=== PATIENT | female | born 1945 | race Caucasian/White ===

== ENCOUNTER 2017-05-25 20:18 | Emergency (ER) | payer OTHER ==
[2017-05-25 20:42] VITALS: TEMP 98.9; BMI 25.0
[2017-05-25] MEDS ORDERED: HYDROCHLOROTHIAZIDE 25 MG TABLET (FP) PO ONE (22:03)
[2017-05-25] MEDS ORDERED: ACETAMINOPHEN 500 MG TABLET (FP) PO ONE (22:03)
[2017-05-25] MEDS ORDERED: cloNIDine HCL 0.1 MG TABLET PO ONE (22:04)
--- NOTE | 2017-05-25 22:28 | PDOC ---
History of Present Illness - History of Present Illness Initial Comments: 05/25/17 22:29 The patient is a 72 year old female, with a significant past medical history of hypertension, who presents to the emergency department with headache since 12 noon. Patient says that she doesnt normally get headaches so she was concerned when a frontal headache developed this afternoon. She took her blood pressure and it was 170/104 which she claims is the highest it has been. Patient says she takes normally tales Losartan 25mg and took one today at 7:15 pm. She says she started taking Amoxicillin for an infection she has under her crown and is supposed to take it 3 times a day and has taken 2 so far today. She denies recent fevers, chills, or dizziness. She denies recent nausea, vomit , or visual changes. She denies recent chest pain or shortness of breath. Allergies: NKA Past surgical history: Appendectomy (2yrs ago) Social history: Nonsmoker. Denies EtOH use and recreational drug use. Primary Care Physician: Dr. Dobbs ([facility]) <Chantell Parks - Last Filed: 05/25/17 23:15> <Marleen Bautista - Last Filed: 05/25/17 23:32> - General Chief Complaint: Blood Pressure Problem Stated Complaint: BLOOD PRESSURE PROBLEM Time Seen by Provider: 05/25/17 21:02 Past History <Chantell Parks - Last Filed: 05/25/17 23:15> - Past Medical History HTN: Yes - Surgical History Appendectomy: Yes Orthopedic Surgery: (RIGHT SHOULDER SX 2012) - Suicide/Smoking/Psychosocial Hx Smoking Status: No Smoking History: Never smoked Years of Tobacco Use: 0 Have you smoked in the past 12 months: No Number of Cigarettes Smoked Daily: 0 Cigars Per Day: 0 Information on smoking cessation initiated: No Hx Alcohol Use: No Drug/Substance Use Hx: No <Marleen Bautista - Last Filed: 05/25/17 23:32> - Past Medical History Allergies/Adverse Reactions: Allergies Allergy/AdvReac Type Severity Reaction Status Date / Time codeine AdvReac Severe Vomiting Verified 05/25/17 20:42 Home Medications: Ambulatory Orders Losartan Potassium 25 mg PO DAILY 12/15/11 Amoxicillin - [Amoxicillin 500mg Capsule -] 500 mg PO DAILY 05/25/17 Review of Systems - Review of Systems Comments:: 05/25/17 22:29 CONSTITUTIONAL: Absent: fever, no chills, no fatigue EYES: Absent: visual changes ENT: Absent: ear pain, no sore throat CARDIOVASCULAR: Absent: chest pain, no palpitations RESPIRATORY: Absent: cough, no SOB GI: Absent: abdominal pain, no nausea, no vomiting, no constipation, no diarrhea GENITOURINARY: Absent: dysuria, no frequency, no hematuria MUSCULOSKELETAL: Absent: back pain, no arthralgia, no myalgia SKIN: Absent: rash NEURO: Present:: headache <Chantell Parks - Last Filed: 05/25/17 23:15> *Physical Exam - Vital Signs Last Vital Signs Temp Pulse Resp BP Pulse Ox 98.9 F 70 18 161/105 100 05/25/17 20:38 05/25/17 20:38 05/25/17 20:38 05/25/17 20:38 05/25/17 20:38 - Physical Exam Comments: 05/25/17 22:29 GENERAL: Alert and oriented x3. Well-appearing, well-nourished. No apparent distress. HEENT: Normocephalic, atraumatic. PERRL, EOM intact. CARDIOVASCULAR: Normal S1, S2. Regular rate and rhythm. PULMONARY: Clear to auscultation bilaterally. ABDOMEN: Soft, non-distended, non-tender. EXTREMITIES: Normal ROM in all four extremities. No gross deformities. SKIN: Warm, dry. No rash NEUROLOGICAL: No focal neurological deficits. <Chantell Parks - Last Filed: 05/25/17 23:15> - Vital Signs Last Vital Signs Temp Pulse Resp BP Pulse Ox 98.9 F 70 18 161/105 100 05/25/17 20:38 05/25/17 20:38 05/25/17 20:38 05/25/17 20:38 05/25/17 20:38 <Marleen Bautista - Last Filed: 05/25/17 23:32> ED Treatment Course - RADIOLOGY Radiograph Interpretation: 05/25/17 23:16 CT head w/out contrast Impression: No CT evidence of acute intracranial pathology. There has been no definite interval change comparison to a prior CT study of Reported by: Nir Zaragoza MD <Chantell Parks - Last Filed: 05/25/17 23:15> - RADIOLOGY Radiology Studies Ordered: Category Date Time Status HEAD CT WITHOUT CONTRAST [CT] Stat CT Scan 05/25/17 22:04 Taken <Marleen Bautista - Last Filed: 05/25/17 23:32> Medical Decision Making - Medical Decision Making 05/25/17 23:29 BP 154/94 -headache is gone -no gross focal deficits -she NEVER had visual changes,or chest pain or shortness of breath or confusion NIHSS is zero ct scan of the head is negative for any acute intracranial pathology <Marleen Bautista - Last Filed: 05/25/17 23:32> *DC/Admit/Observation/Transfer - Attestations Scribe Attestion: 05/25/17 22:30 Documentation prepared by Chantell Parks, acting as lead medical technologist for Marleen Bautista MD. <Chantell Parks - Last Filed: 05/25/17 23:15> <Marleen Bautista - Last Filed: 05/25/17 23:32> Diagnosis at time of Disposition: Elevated blood pressure reading Headache Qualifiers: Headache type: unspecified Headache chronicity pattern: acute headache Intractability: not intractable Qualified Code(s): R51 - Headache; R51 - Headache - Discharge Dispostion Disposition: HOME Condition at time of disposition: Stable - Referrals Referrals: Denisse Dobbs [Primary Care Provider] - - Patient Instructions Printed Discharge Instructions: DI for High Blood Pressure Additional Instructions: please see your regular physician this week Return for any worsening symptoms
[2017-05-25] MEDS ORDERED: ACETAMINOPHEN 325 MG TABLET (FP) ONE (22:38)
[2017-05-25] MEDS ORDERED: HYDROCHLOROTHIAZIDE 25 MG TABLET (FP) ONE (22:38)
[2017-05-25] MEDS ORDERED: cloNIDine HCL 0.1 MG TABLET ONE (22:39)
[2017-05-25 23:31] VITALS: BP 154/94; PULSE 73
== END 2017-05-25 23:46 | disposition home or self-care (01) ==
LOC: SUPCPDRO 20:18 → JER 20:18
DX: I10 Essential (primary) hypertension (principal)
CPT/HCPCS: 70450-TC; 99281-25